=== PATIENT | female | born 1955 | race Two or more races ===

== ENCOUNTER 2021-10-15 10:00 | Outpatient (CLI) | payer OTHER, MEDICAID ==
[~2021-10-15] VITALS: Ht 157.5 cm; Wt 95.3 kg
[2021-10-15] MEDS ORDERED: METO-159 PO (12:03)
[2021-10-15] MEDS ORDERED: CHOL20007 PO (12:03)
[2021-10-15] MEDS ORDERED: FENO145T27 PO (12:03)
[2021-10-15] MEDS ORDERED: CYAN-17 PO (12:03)
[2021-10-15] MEDS ORDERED: [UNRECOGNIZED DRUG - CODE] PO (12:03)
[2021-10-15] MEDS ORDERED: ASCO500T11 PO (12:03)
[2021-10-15] MEDS ORDERED: HYDR12.56 PO (12:03)
[2021-10-15] MEDS ORDERED: ASPI-543 PO (12:03)
[2021-10-15] MEDS ORDERED: AMLO-489 PO (12:03)
[2021-10-15] MEDS ORDERED: MAGN500T11 PO (12:03)
[2021-10-15] MEDS ORDERED: OMEP20TA PO (12:03)
== END 2021-10-15 10:30 | disposition home or self-care (01) ==
LOC: LAB 10:00 → EDSTATUS 10-17 09:57
PROVIDERS: ATTEND Internal Medicine Cardiovascular Disease
DX: U07.1 COVID-19 (principal)

== ENCOUNTER 2022-03-20 07:16 | Day surgery (SDC) | payer OTHER, MEDICAID ==
[~2022-03-20] VITALS: Ht 157.5 cm; Wt 91.6 kg
[2022-03-20] VITALS (9 sets, daily range): BP systolic 120–148; BP diastolic 50–67
[~2022-03-20 07:16] MED LIST: AMLO-489 PO; ASPI-543 PO; BACL10TA PO; CHOL20007 PO; FENO145T27 PO; HYDR12.56 PO; METO-159 PO; MULT-927 PO; OMEP20TA PO; [UNRECOGNIZED DRUG - CODE] PO
[2022-03-20] MEDS ORDERED: HEPARIN SODIUM (PORCINE) 5000 UNITS/ML 1ML VIAL ONE (09:04)
[2022-03-20] MEDS ORDERED: fentaNYL CITRATE 100 MCG/2 ML VL ONE (09:04)
[2022-03-20] MEDS ORDERED: VERAPAMIL 2.5MG/ML INJ 2ML VIAL IV ONE (09:04)
[2022-03-20] MEDS ORDERED: MIDAZOLAM HCL 2MG/2ML 2ml VIAL (1mg/ml) ONE (09:04)
[2022-03-20] MEDS ORDERED: IODIXANOL 320MG/ML 100ML BTL IV ONE (09:05)
[2022-03-20] MEDS ORDERED: LIDOCAINE 2%HCL (LOCAL ANESTH.) INJ 20ML MDV ONE (09:06)
[2022-03-20] MEDS ORDERED: ANGIOMAX 250 MG VIAL IV ONE (09:45)
[2022-03-20] MEDS ORDERED: SODIUM CHL 0.9% 0 ML ONE (09:45)
[2022-03-20] MEDS ORDERED: ASPirin 325 MG TAB ONE (09:58)
[2022-03-20] MEDS ORDERED: TICAGRELOR 90 MG TAB ONE (09:58)
== END 2022-03-20 13:55 | disposition home or self-care (01) ==
LOC: CATH 07:16
PROVIDERS: ATTEND Internal Medicine Cardiovascular Disease
DX: R94.39 Abnormal result of other cardiovascular function study (principal); I25.10 Atherosclerotic heart disease of native coronary artery without angina pectoris; I10 Essential (primary) hypertension; J45.909 Unspecified asthma, uncomplicated; E66.9 Obesity, unspecified; Z87.891 Personal history of nicotine dependence; Z20.822 Contact with and (suspected) exposure to COVID-19; Z68.39 Body mass index [BMI] 39.0-39.9, adult
CPT/HCPCS: 93458; C1769; C1874; C1887; C1894; C9600; J1644; J2250; J3010; Q9967; U0003; 99152; 99153

== ENCOUNTER 2022-03-20 18:21 | Emergency (ER) | payer OTHER, MEDICAID ==
[~2022-03-20] VITALS: Ht 157.5 cm; Wt 93.1 kg
[2022-03-20 20:15] LABS: Basophils # (auto) 0 10 ^3/uL (0-0.2); Eosinophils # (auto) 0.1 10 ^3/uL (0-0.8); Lymphocytes # (auto) 1.7 10 ^3/uL (0.4-5.4); Mean Corpuscular Hemoglobin 24.9 pg (28.0-32.0); Nucleated Red Blood Cells % 0.1 %
[2022-03-20 20:17] LABS: Basophils % (auto) 0.4 % (0.0-2.0); Eosinophils % (auto) 2.1 % (0.0-7.0); Hematocrit 38.6 % (36.0-46.0); Hemoglobin 12.2 g/dL (12.2-16.2); Lymphocytes % (auto) 29.5 % (10.0-50.0); Mean Corpuscular Hgb Conc. 31.7 g/dL (32.0-36.0); Mean Corpuscular Volume 78.7 fL (80.0-100.0); Monocytes # (auto) 0.7 10 ^3/uL (0-1.3); Monocytes % (auto) 12.1 % (0.0-12.0); Neutrophils # (auto) 3.3 10 ^3/uL (1.6-8.6); Neutrophils % (auto) 55.9 % (37.0-80.0); Red Cell Distribution Width 15.6 % (11.8-14.3); White Blood Cell 5.9 10^3/uL (4.4-10.8)
[2022-03-20 20:27] LABS: Albumin 3.7 g/dL (3.4-5.0); Calcium 10.2 mg/dL (8.5-10.1); Magnesium 2.1 mg/dL (1.6-2.6); Potassium 4.1 mmol/L (3.5-5.1)
[2022-03-20 20:30] LABS: Bilirubin, Total 0.4 mg/dL (0.2-1.0); Total Protein 6.7 g/dL (6.4-8.2)
[2022-03-20 20:32] LABS: Partial Thromboplastin Time 27.6 sec (24.6-33.4)
[2022-03-20 22:33] VITALS: BP 152/69
== END 2022-03-21 00:28 | disposition home or self-care (01) ==
LOC: ER 18:21
DX: R06.02 Shortness of breath (principal); J45.909 Unspecified asthma, uncomplicated; I10 Essential (primary) hypertension; Z98.61 Coronary angioplasty status
CPT/HCPCS: 36415; 71045; 80053; 83735; 83880; 84484; 85025; 85379; 85610; 85730; 93005

== ENCOUNTER → 2022-11-24 | Outpatient (CLI) | payer OTHER, MEDICAID | END | disposition home or self-care (01) | LOC: LAB 12:12 | PROVIDERS: ATTEND Internal Medicine | DX: A09 Infectious gastroenteritis and colitis, unspecified (principal) | CPT/HCPCS: 87177 ==

== ENCOUNTER → 2022-11-25 | Outpatient (CLI) | payer OTHER, MEDICAID | END | disposition home or self-care (01) | LOC: LAB 12:45 | PROVIDERS: ATTEND Internal Medicine | DX: A09 Infectious gastroenteritis and colitis, unspecified (principal) | CPT/HCPCS: 82270; 85048; 87177; 87493 ==

== ENCOUNTER → 2023-01-06 | Outpatient (CLI) | payer OTHER ==
[~2023-01-06] MED LIST changes: -AMLO-489 PO; +AMLO1TAB22 PO; -HYDR12.56 PO; +HYDR12.59 PO
== END | disposition home or self-care (01) ==
LOC: LAB 15:20
PROVIDERS: ATTEND Internal Medicine
DX: R19.7 Diarrhea, unspecified (principal)
CPT/HCPCS: 87045; 87177; 87427; 87493

== ENCOUNTER → 2023-03-17 | Outpatient (CLI) | payer OTHER ==
[2023-03-17 09:33] LABS: Urine Bacteria NONE SEEN /hpf (None Seen); Urine Blood Negative /uL (Negative); Urine Clarity Clear (Clear); Urine Color Yellow (Yellow); Urine Protein, UAD Negative (Negative); Urine Specific Gravity 1.012 (1.001-1.035); Urine Urobilinogen Normal (Negative); Urine WBC 6 /hpf (0 - 5)
[2023-03-17 10:07] LABS: Alanine Aminotransferase 23 U/L (7-40); Albumin 4.2 g/dL (3.2-4.8); Alkaline Phosphatase 43 U/L (46-116); Anion Gap 6.4 (5-15); Aspartate Aminotransferase 17 U/L (13-40); BUN/Creatinine Ratio 31.9 (10.0-20.0); Blood Urea Nitrogen 23 mg/dL (9-23); Calcium 10.3 mg/dL (8.5-10.1); Carbon Dioxide 27.6 mmol/L (20-30); Chloride 102 mmol/L (98-107); Glucose 93 mg/dL (74-106); LDL Cholesterol 91 mg/dL (< 100); Potassium 4.4 mmol/L (3.5-5.1); Sodium 136 mmol/L (136-145); Triglycerides 55 mg/dL (< 150)
[2023-03-17 10:08] LABS: % Iron Saturation 9.2 % (15-50); Cholesterol 160 mg/dL (< 200); Folate (Folic Acid) > 24.00 ng/mL (>5.38)
[2023-03-17 10:09] LABS: Bilirubin, Total 0.5 mg/dL (0.2-1.0); HDL Cholesterol 73 mg/dL (40-59); T3 Total 0.95 ng/mL (0.60-1.81)
[2023-03-17 10:11] LABS: Ferritin 3.7 ng/mL (10-291)
== END | disposition home or self-care (01) ==
LOC: LAB 08:45
PROVIDERS: ATTEND Internal Medicine
DX: I25.728 Atherosclerosis of autologous artery coronary artery bypass graft(s) with other forms of angina pectoris (principal); I49.8 Other specified cardiac arrhythmias; E55.9 Vitamin D deficiency, unspecified; N39.0 Urinary tract infection, site not specified; E53.8 Deficiency of other specified B group vitamins
CPT/HCPCS: 36415; 80053; 80061; 81001; 82306; 82607; 82728; 82746; 83540; 83550; 84436; 84443; 84480; 87086

== ENCOUNTER → 2023-04-16 | Outpatient (CLI) | payer OTHER ==
[2023-04-16 17:05] LABS: Alanine Aminotransferase 28 U/L (7-40); Albumin 4.4 g/dL (3.2-4.8); Alkaline Phosphatase 43 U/L (46-116); Anion Gap 4 (5-15); Aspartate Aminotransferase 21 U/L (13-40); BUN/Creatinine Ratio 19.1 (10.0-20.0); Blood Urea Nitrogen 17 mg/dL (9-23); Calcium 10.7 mg/dL (8.7-10.4); Carbon Dioxide 29 mmol/L (20-30); Chloride 105 mmol/L (98-107); Glucose 100 mg/dL (74-106); Potassium 4.4 mmol/L (3.5-5.1); Sodium 138 mmol/L (136-145)
[2023-04-16 17:06] LABS: Bilirubin, Total 0.4 mg/dL (0.2-1.0); Total Protein 6.7 g/dL (5.7-8.2)
== END | disposition home or self-care (01) ==
LOC: LAB 15:57
PROVIDERS: ATTEND Internal Medicine
DX: I49.8 Other specified cardiac arrhythmias (principal)
CPT/HCPCS: 36415; 80053; 80162

== ENCOUNTER → 2023-09-07 | Outpatient (CLI) | payer MEDICAID ==
[2023-09-07 11:41] LABS: Basophils # (auto) 0.1 10 ^3/uL (0-0.2); Basophils % (auto) 0.9 % (0.0-2.0); Eosinophils # (auto) 0.2 10 ^3/uL (0-0.8); Eosinophils % (auto) 2.2 % (0.0-7.0); Hematocrit 36.3 % (36.0-46.0); Hemoglobin 11.7 g/dL (12.2-16.2); Lymphocytes # (auto) 2.2 10 ^3/uL (0.4-5.4); Lymphocytes % (auto) 31.1 % (10.0-50.0); Mean Corpuscular Hgb Conc. 32.1 g/dL (32.0-36.0); Mean Corpuscular Volume 77.9 fL (80.0-100.0); Monocytes # (auto) 0.6 10 ^3/uL (0-1.3); Monocytes % (auto) 8.2 % (0.0-12.0); Neutrophils % (auto) 57.6 % (37.0-80.0); Red Blood Cells 4.66 10^6/uL (4.0-5.20); Red Cell Distribution Width 15.7 % (11.8-14.3)
[2023-09-07 12:14] LABS: Alanine Aminotransferase 21 U/L (7-40); Alkaline Phosphatase 37 U/L (46-116); Anion Gap 3 (5-15); BUN/Creatinine Ratio 22.1 (10.0-20.0); Blood Urea Nitrogen 17 mg/dL (9-23); Calcium 10.8 mg/dL (8.5-10.1); Carbon Dioxide 30 mmol/L (20-30); Chloride 106 mmol/L (98-107); Glucose 109 mg/dL (74-106); LDL Cholesterol 91 mg/dL (< 100); Potassium 4.1 mmol/L (3.5-5.1); Sodium 139 mmol/L (136-145); Triglycerides 77 mg/dL (< 150)
[2023-09-07 12:15] LABS: Albumin 4.5 g/dL (3.2-4.8); Aspartate Aminotransferase 21 U/L (13-40); Cholesterol 159 mg/dL (< 200)
[2023-09-07 12:16] LABS: Bilirubin, Direct 0.2 mg/dL (<0.3); Bilirubin, Total 0.5 mg/dL (0.2-1.0); HDL Cholesterol 65 mg/dL (40-59); Total Protein 6.2 g/dL (5.7-8.2)
== END | disposition home or self-care (01) ==
LOC: LAB 11:04
PROVIDERS: ATTEND Specialist
DX: I10 Essential (primary) hypertension (principal); R94.5 Abnormal results of liver function studies; D64.9 Anemia, unspecified; E78.5 Hyperlipidemia, unspecified; E11.8 Type 2 diabetes mellitus with unspecified complications; E03.9 Hypothyroidism, unspecified
CPT/HCPCS: 36415; 80048; 80061; 80076; 83036; 84443; 85025

== ENCOUNTER → 2024-03-21 | Outpatient (CLI) | payer MEDICAID ==
[~2024-03-21] VITALS: Ht 160 cm; Wt 95.3 kg
[2024-03-21] MEDS: ADENOSINE 80 MG in GIVE UN-DILUTED 0 ML IV STA (10:21)
== END | disposition home or self-care (01) ==
LOC: XYW 08:07
PROVIDERS: ATTEND Specialist
DX: R07.9 Chest pain, unspecified (principal); I47.10 Supraventricular tachycardia, unspecified; I10 Essential (primary) hypertension; J45.909 Unspecified asthma, uncomplicated; M16.0 Bilateral primary osteoarthritis of hip; G62.9 Polyneuropathy, unspecified
CPT/HCPCS: 78452; 93017; A9500; J0153

== ENCOUNTER → 2024-07-04 | Outpatient (CLI) | payer MEDICAID ==
[2024-07-04 10:24] LABS: Basophils # (auto) 0 10 ^3/uL (0-0.2); Basophils % (auto) 0.9 % (0.0-2.0); Eosinophils # (auto) 0.1 10 ^3/uL (0-0.8); Eosinophils % (auto) 2.4 % (0.0-7.0); Hemoglobin 12.5 g/dL (12.2-16.2); Monocytes # (auto) 0.5 10 ^3/uL (0-1.3); Nucleated Red Blood Cells % 0.1 %
[2024-07-04 10:26] LABS: Hematocrit 38.3 % (36.0-46.0); Lymphocytes # (auto) 1.8 10 ^3/uL (0.4-5.4); Lymphocytes % (auto) 32.3 % (10.0-50.0); Mean Corpuscular Hemoglobin 25.7 pg (28.0-32.0); Mean Corpuscular Hgb Conc. 32.6 g/dL (32.0-36.0); Monocytes % (auto) 9.6 % (0.0-12.0); Neutrophils % (auto) 54.8 % (37.0-80.0); Platelet Count (auto) 266 10^3/uL (140-450); Red Blood Cells 4.84 10^6/uL (4.0-5.20); Red Cell Distribution Width 16.9 % (11.8-14.3); White Blood Cell 5.5 10^3/uL (4.4-10.8)
[2024-07-04 10:46] LABS: Urine Bacteria FEW /hpf (None Seen); Urine Blood Negative /uL (Negative); Urine Clarity Turbid (Clear); Urine Color Yellow (Yellow); Urine Hyaline Cast FEW /lpf (0 - 2); Urine Mucus FEW (None Seen); Urine Protein, UAD TRACE (Negative); Urine Specific Gravity 1.024 (1.001-1.035); Urine Urobilinogen Normal (Negative); Urine WBC 96 /hpf (0 - 5)
[2024-07-04 10:57] LABS: Alanine Aminotransferase 18 U/L (7-40); Albumin 4.4 g/dL (3.2-4.8); Alkaline Phosphatase 47 U/L (46-116); Anion Gap 5 (5-15); Aspartate Aminotransferase 17 U/L (13-40); BUN/Creatinine Ratio 34.2 (10.0-20.0); Bilirubin, Direct 0.1 mg/dL (<0.3); Bilirubin, Total 0.5 mg/dL (0.2-1.0); Carbon Dioxide 29 mmol/L (20-31); Chloride 107 mmol/L (98-107); Cholesterol 174 mg/dL (< 200); Glucose 103 mg/dL (74-106); Potassium 4.1 mmol/L (3.5-5.1); Sodium 141 mmol/L (136-145); Triglycerides 60 mg/dL (< 150)
[2024-07-04 10:58] LABS: Total Protein 6.4 g/dL (5.7-8.2)
[2024-07-04 11:04] LABS: Blood Urea Nitrogen 27 mg/dL (9-23); Calcium 11.2 mg/dL (8.7-10.4); HDL Cholesterol 64 mg/dL (40-59); LDL Cholesterol 104 mg/dL (< 100)
== END | disposition home or self-care (01) ==
LOC: LAB 09:58
PROVIDERS: ATTEND Specialist
DX: E03.9 Hypothyroidism, unspecified (principal); R68.89 Other general symptoms and signs; I10 Essential (primary) hypertension; D64.9 Anemia, unspecified; E11.9 Type 2 diabetes mellitus without complications; E78.5 Hyperlipidemia, unspecified
CPT/HCPCS: 36415; 80053; 80061; 81001; 82248; 83036; 84443; 85025

== ENCOUNTER → 2024-07-17 | Outpatient (CLI) | payer MEDICAID ==
[2024-07-17 10:01] LABS: Urine Bacteria None Seen /hpf (None Seen)
[2024-07-17 10:49] LABS: Alanine Aminotransferase 24 U/L (7-40); Alkaline Phosphatase 48 U/L (46-116); Anion Gap 7 (5-15); Aspartate Aminotransferase 22 U/L (13-40); BUN/Creatinine Ratio 26.7 (10.0-20.0); Carbon Dioxide 29 mmol/L (20-31); Chloride 104 mmol/L (98-107); LDL Cholesterol 99 mg/dL (< 100); Potassium 4.2 mmol/L (3.5-5.1); Sodium 140 mmol/L (136-145); Triglycerides 103 mg/dL (< 150)
[2024-07-17 10:50] LABS: Albumin 4.4 g/dL (3.2-4.8)
[2024-07-17 10:51] LABS: Bilirubin, Total 0.6 mg/dL (0.2-1.0); Cholesterol 173 mg/dL (< 200); Total Protein 6.6 g/dL (5.7-8.2)
[2024-07-17 10:53] LABS: Urine Blood Negative /uL (Negative); Urine Clarity Turbid (Clear); Urine Color Yellow (Yellow); Urine Hyaline Cast FEW /lpf (0 - 2); Urine Mucus MODERATE (None Seen); Urine Protein, UAD 1+ (Negative); Urine Specific Gravity 1.025 (1.001-1.035); Urine Urobilinogen Normal (Negative); Urine WBC 49 /hpf (0 - 5)
[2024-07-17 11:02] LABS: Blood Urea Nitrogen 24 mg/dL (9-23); Calcium 11.2 mg/dL (8.7-10.4); Glucose 110 mg/dL (74-106); HDL Cholesterol 63 mg/dL (40-59)
== END | disposition home or self-care (01) ==
LOC: LAB 09:41
PROVIDERS: ATTEND Internal Medicine
DX: N39.0 Urinary tract infection, site not specified (principal); E55.9 Vitamin D deficiency, unspecified; E78.5 Hyperlipidemia, unspecified; E66.01 Morbid (severe) obesity due to excess calories
CPT/HCPCS: 36415; 80053; 80061; 81001; 82306; 83036; 84436; 84443; 84480; 87086

== ENCOUNTER 2025-03-06 09:10 | Outpatient (CLI) | payer MEDICAID ==
--- NOTE | 2025-03-06 15:02 | DVH ---
Procedure: NM NM BONE 3 PHASE Exam Date: 03/06/2025 09:43 AM Clinical History: HX OF ARTHROPLASTY BILATERAL HIPS Comparison Study: None Nuclear Medicine Three-Phase Bone Scan Technique: Following the intravenous administration of 27millicuries of technetium 99m MDP dynamic blood flow im ages and static and blood pool images were obtained. Delayed planar images were obtained at 3 hours. Findings: Bilateral hip arthroplasty. No abnormal asymmetric activity. Impression: Essentially unremarkable 3-phase bone scan. Clinical correlation advised.
== END 2025-03-06 17:00 | disposition home or self-care (01) ==
LOC: XYW 09:10
PROVIDERS: ATTEND Physician Assistant
DX: Z96.643 Presence of artificial hip joint, bilateral (principal)
CPT/HCPCS: 78315; A9503